=== PATIENT | male | born 1975 | race Caucasian/White ===

== ENCOUNTER 2017-02-15 17:06 | Emergency (ER) | payer OTHER ==
[2017-02-15 17:56] LABS: RBC 5.78 M/uL (4.70-6.00)
[2017-02-15 17:57] LABS: HGB 17.4 g/dl (13.2-18.0); MCH 30.1 pg (25.0-31.0); MCHC 34.1 g/dL (32.0-36.0); MCV 88.2 fL (78.0-100.0); PLT 191 K/uL (150-400)
[2017-02-15 18:08] LABS: ALBUMIN 4.4 g/dL (3.5-5.0); BILIRUBIN - TOTAL 0.6 mg/dL (0.1-1.0); GLOBULIN (CALCULATION) 3.2 g/dL (2.2-4.2); POTASSIUM 4.4 mmol/L (3.5-5.1); TOTAL PROTEIN 7.6 g/dL (6.4-8.3)
== END 2017-02-15 18:41 | disposition home or self-care (01) ==
LOC: FER 17:06
PROVIDERS: Nurse Practitioner
DX: I10 Essential (primary) hypertension (principal)
CPT/HCPCS: 36415; 80053; 85025; 93005